=== PATIENT | female | born 1990 | race American Indian/Alaskan Native ===

== ENCOUNTER 2021-08-09 08:42 | Emergency (ER) | payer MEDICAID ==
--- NOTE | 2021-08-09 09:48 | XRay Report ---
CHEST 2 VIEWS INDICATION / CLINICAL INFORMATION: Chest Pain. COMPARISON: None available. FINDINGS: SUPPORT DEVICES: None. HEART / MEDIASTINUM: No significant abnormality. LUNGS / PLEURA: No significant pulmonary or pleural abnormality. No pneumothorax. ADDITIONAL FINDINGS: No significant additional findings. IMPRESSION: 1. No acute findings. Signer Name: Avinash Coates MD Signed: 08/09/2021 9:43 AM Workstation Name: [id number]
[2021-08-09] MEDS ORDERED: ONDANSETRON 4 MG ODT TAB PO ONE (10:15)
[2021-08-09 10:38] LABS: Basophils % (Auto) 0.3 % (0.0-1.8); Eosinophils # (Auto) 0.1 K/mm3 (0.0-0.4); Hematocrit 32.4 % (30.3-42.9); Hemoglobin 10.5 gm/dl (10.1-14.3); Lymphocytes # (Auto) 1.6 K/mm3 (1.2-5.4); Lymphocytes % (Auto) 19.2 % (13.4-35.0); Mean Corpuscular HGB Conc 32 % (30-34); Mean Corpuscular Volume 76 fl (79-97); Monocytes # (Auto) 0.7 K/mm3 (0.0-0.8); Monocytes % (Auto) 8.4 % (0.0-7.3); Platelet Count 362 K/mm3 (140-440); Red Blood Count 4.29 M/mm3 (3.65-5.03); Red Cell Distribution Width 19.1 % (13.2-15.2)
--- NOTE | 2021-08-09 10:52 | Emergency Department Report ---
ED Abdominal Pain HPI - General Chief Complaint: Chest Pain Stated Complaint: CHEST/ABD PAIN Time Seen by Provider: 08/09/21 10:14 Source: patient Mode of arrival: Wheelchair Limitations: No Limitations - History of Present Illness Initial Comments: 31-year-old black female with no past medical history presents to the emergency department for evaluation of left flank, abdominal, and chest pain. She states that while driving to work around 720 this morning, she had sudden onset of left flank pain that radiated to her left abdomen and left back then eventually up to her chest. She states that pain was associated with dizziness, nausea, vomiting, and shortness of breath. She states pain at its worse was 5 out of 10. She denies fever and dysuria, and she states that she has never had pain like this before. MD Complaint: abdominal pain, flank pain -: Sudden, hour(s) Location: L flank Radiation: LLQ, chest Migration to: no migration Severity: moderate Severity scale (0 -10): 5 Quality: cramping, aching Consistency: constant Associated Symptoms: nausea, vomiting. denies: diarrhea, fever, chills, dysuria, hematemesis, hematochezia, melena, hematuria, anorexia, syncope - Related Data Previous Rx's Medication Instructions Recorded Last Taken Type Ketorolac [Toradol] 10 mg PO Q6H PRN #12 tab 08/09/21 Unknown Rx Ondansetron [Zofran Odt] 4 mg PO Q8HR PRN #12 tab.rapdis 08/09/21 Unknown Rx cephALEXin [Keflex] 500 mg PO Q12HR #14 cap 08/09/21 Unknown Rx Allergies Allergy/AdvReac Type Severity Reaction Status Date / Time No Known Allergies Allergy Unverified 08/09/21 08:54 ED Review of Systems ROS: Stated complaint: CHEST/ABD PAIN Other details as noted in HPI Comment: All other systems reviewed and negative Constitutional: denies: chills, fever Respiratory: denies: shortness of breath, SOB with exertion, SOB at rest Cardiovascular: chest pain. denies: palpitations, dyspnea on exertion, orthopnea, edema, syncope, paroxysmal nocturnal dyspnea Gastrointestinal: abdominal pain. denies: nausea, vomiting, diarrhea, hematemesis, melena, hematochezia Genitourinary: denies: urgency, dysuria, frequency, hematuria, discharge Musculoskeletal: back pain Neurological: denies: headache, weakness, numbness, paresthesias, confusion, abnormal gait, vertigo ED Past Medical Hx - Medications Home Medications: Home Medications Medication Instructions Recorded Confirmed Last Taken Type Ketorolac [Toradol] 10 mg PO Q6H PRN #12 tab 08/09/21 Unknown Rx Ondansetron [Zofran Odt] 4 mg PO Q8HR PRN #12 tab.rapdis 08/09/21 Unknown Rx cephALEXin [Keflex] 500 mg PO Q12HR #14 cap 08/09/21 Unknown Rx ED Physical Exam - General Limitations: No Limitations General appearance: alert, in no apparent distress - Head Head exam: Present: atraumatic, normocephalic - Eye Eye exam: Present: normal appearance. Absent: conjunctival injection - Neck Neck exam: Present: normal inspection, full ROM. Absent: lymphadenopathy - Respiratory Respiratory exam: Present: normal lung sounds bilaterally. Absent: respiratory distress, wheezes, rales, rhonchi, stridor, chest wall tenderness - Cardiovascular Cardiovascular Exam: Present: regular rate, normal heart sounds - GI/Abdominal GI/Abdominal exam: Present: soft, tenderness (L flank and LLQ), normal bowel sounds. Absent: distended, guarding, rebound, rigid - Extremities Exam Extremities exam: Present: normal inspection, normal capillary refill. Absent: pedal edema, joint swelling, calf tenderness - Back Exam Back exam: Present: normal inspection, CVA tenderness (L). Absent: CVA tenderness (R), vertebral tenderness - Neurological Exam Neurological exam: Present: alert, oriented X3, normal gait, reflexes normal. Absent: motor sensory deficit - Psychiatric Psychiatric exam: Present: normal affect, normal mood - Skin Skin exam: Present: warm, dry, intact, normal color ED Course Vital Signs 08/09/21 08/09/21 08:55 14:39 Temperature 98.3 F Pulse Rate 65 78 Respiratory 18 18 Rate Blood Pressure 133/83 135/65 [Right] O2 Sat by Pulse 10 L 98 Oximetry ED Medical Decision Making - Lab Data Result diagrams: 08/09/21 09:58 08/09/21 09:58 - EKG Data Interpretation: no acute changes, normal EKG - Radiology Data Radiology results: report reviewed, image reviewed Chest xray: FINDINGS: SUPPORT DEVICES: None. HEART / MEDIASTINUM: No significant abnormality. LUNGS / PLEURA: No significant pulmonary or pleural abnormality. No pneumothorax. ADDITIONAL FINDINGS: No significant additional findings. IMPRESSION: 1. No acute findings. CT abdomen and pelvis without contast: FINDINGS: LOWER CHEST: On the most superior images, an approximate 4 cm well circumscribed soft tissue density rounded masslike lesion is identified in the lower mediastinum just to the right of midline. Internal density measures 43 Hounsfield units. This rounded density abuts the right mainstem bronchus, distal esophagus and lower thoracic spine. No internal complexity. Heart size is normal. The visualized lung bases are clear. LIVER: No significant abnormality. GALLBLADDER: No significant abnormality. BILE DUCTS: No significant abnormality. PANCREAS: No significant abnormality. SPLEEN: No significant abnormality. ADRENALS: No significant abnormality. RIGHT KIDNEY and URETER: There are approximately 5 calyceal stones in the mid to inferior right kidney measuring up to 3 mm. No ureteral stones or hydronephrosis. No focal right renal lesion. LEFT KIDNEY and URETER: 2 or 3 punctate calyceal stones are identified in the mid and superior left kidney. No convincing ureteral stones. No hydronephrosis. No focal left renal lesion. STOMACH and SMALL BOWEL: No significant abnormality. COLON: No significant abnormality. APPENDIX: Not confidently identified. PERITONEUM: No free fluid. No free air. No fluid collection. LYMPH NODES: No significant adenopathy. AORTA and ARTERIES: No significant abnormality. IVC and VEINS: No significant abnormality. URINARY BLADDER: The bladder is mostly empty and poorly evaluated. No obvious wall abnormality. There is a 3 mm calcification in the vicinity of the distal left ureter or just within the bladder. I suspect this may represent a recently passed stone. REPRODUCTIVE ORGANS: No significant abnormality. ADDITIONAL FINDINGS: None. SKELETAL SYSTEM: No significant abnormality. IMPRESSION: Bilateral nonobstructing nephrolithiasis as described. Question a 3 mm stone in the bladder as described above. This may represent a recently passed stone. Please correlate with the patient's clinical presentation. No acute inflammatory process is appreciated. A 4 cm rounded soft tissue density masslike lesion is identified in the lower mediastinum as described above. This is incompletely imaged but overall has a benign appearance. Considerations include an enlarged lymph node, neurogenic lesion, bronchogenic cyst, GI duplication cyst, pericardial cyst, although other etiologies are not excluded. Although I suspect a benign lesion, further evaluation with CT or MRI with and without contrast of the chest is recommended for further evaluation. CT chest with contrast: FINDINGS: HEART: No significant abnormality. CORONARY ARTERY CALCIFICATION: None. THORACIC AORTA: No significant abnormality. MEDIASTINUM / HONG: Within the posterior mediastinum, within the subcarinal space there is a soft tissue mass measuring approximately 4.2 x 4.7 x 5.7 cm. Based on the previous CT abdomen and pelvis this mass demonstrates slight enhancement. PLEURA: No pleural effusion. No pneumothorax. LUNGS: No acute air space or interstitial disease. ADDITIONAL FINDINGS: None. UPPER ABDOMEN: No significant abnormality. SKELETAL SYSTEM: No significant abnormality. IMPRESSION: 1. Redemonstrated soft tissue mass within the posterior mediastinum, in the subcarinal space. This nonspecific and may represent an enlarged lymph node versus neurogenic tumor. Recommend PET/CT and/or tissue sampling for further evaluation. - Medical Decision Making 31-year-old black female with no past medical history presents to the emergency department for evaluation of left flank, abdominal, and chest pain. She states that while driving to work around 720 this morning, she had sudden onset of left flank pain that radiated to her left abdomen and left back then eventually up to her chest. She states that pain was associated with dizziness, nausea, vomiting, and shortness of breath. She states pain at its worse was 5 out of 10. She denies fever and dysuria, and she states that she has never had pain like this before CT abdomen and chest positive for kidney stones of which at least one has already passed and also noted indeterminate mass to mediastinum. CT chest with contrast was order per request of radiology to better evaluate mass and showed a soft tissue mass requiring further outpatient workup. CXR, EKG, and troponin were within normal limits. Patient states that she felt better. Urine positive for UTI. She will be discharged home with Keflex for UTI and toradol, zofran for treatment of kidney stones. She is advised to take medications as prescribed and follow up with pcp for further evaluation and management of mass and kidney stones. She verbalized understanding of and agreement with plan of care. Critical care attestation.: If time is entered above; I have spent that time in minutes in the direct care of this critically ill patient, excluding procedure time. ED Disposition Clinical Impression: Kidney stones, Mass of mediastinum Disposition: HOME / SELF CARE / HOMELESS Is pt being admited?: No Does the pt Need Aspirin: No Condition: Stable Instructions: Low-Purine Eating Plan, Kidney Stones, [id number] Additional Instructions: Take medications as prescribed. Follow-up with primary care provider for further evaluation and management. Prescriptions: cephALEXin [Keflex] 500 mg PO Q12HR #14 cap Ketorolac [Toradol] 10 mg PO Q6H PRN #12 tab PRN Reason: Pain Ondansetron [Zofran Odt] 4 mg PO Q8HR PRN #12 tab.rapdis PRN Reason: Nausea And Vomiting Referrals: HEMA CHÁVEZ MD [Primary Care Provider] - 3-5 Days Forms: Work/School Release Form(ED) Time of Disposition: 14:08
[2021-08-09 10:53] LABS: HCG Qualitative,Urine Negative (Negative)
[2021-08-09 10:55] LABS: Alanine Aminotransferase 10 units/L (7-56); Albumin 3.6 g/dL (3.9-5); Blood Urea Nitrogen 13 mg/dL (7-17); Hemolysis Index 14
[2021-08-09 11:03] LABS: BUN/Creatinine Ratio 22
[2021-08-09 11:18] LABS: Bilirubin,Urine NEG (Negative); Blood,Urine LG (Negative); Color,Urine Yellow (Yellow); Mucus,Urine 2+ /HPF; Urobilinogen,Urine < 2.0 mg/dL (<2.0)
[2021-08-09 11:31] LABS: RBC,Urine > 182.0 /HPF (0.0-6.0)
--- NOTE | 2021-08-09 11:57 | Cat Scan Report ---
CT ABDOMEN AND PELVIS WITHOUT CONTRAST INDICATION / CLINICAL INFORMATION: flank pain,NAUSEA. TECHNIQUE: Axial CT images were obtained through the abdomen and pelvis without IV contrast. Sagittal and mccormack l reformatted images. All CT scans at this location are performed using CT dose reduction for ALARA b y means of automated exposure control. COMPARISON: None available. FINDINGS: LOWER CHEST: On the most superior images, an approximate 4 cm well circumscribed soft tissue density rounded masslike lesion is identified in the lower mediastinum just to the right of midline. Internal density measures 43 Hounsfield units. This rounded density abuts the right mainstem bronchus, distal esophagus and lower thoracic spine. No internal complexity. Heart size is normal. The visualized domenica g bases are clear. LIVER: No significant abnormality. GALLBLADDER: No significant abnormality. BILE DUCTS: No significant abnormality. PANCREAS: No significant abnormality. SPLEEN: No significant abnormality. ADRENALS: No significant abnormality. RIGHT KIDNEY and URETER: There are approximately 5 calyceal stones in the mid to inferior right kidne y measuring up to 3 mm. No ureteral stones or hydronephrosis. No focal right renal lesion. LEFT KIDNEY and URETER: 2 or 3 punctate calyceal stones are identified in the mid and superior left k idney. No convincing ureteral stones. No hydronephrosis. No focal left renal lesion. STOMACH and SMALL BOWEL: No significant abnormality. COLON: No significant abnormality. APPENDIX: Not confidently identified. PERITONEUM: No free fluid. No free air. No fluid collection. LYMPH NODES: No significant adenopathy. AORTA and ARTERIES: No significant abnormality. IVC and VEINS: No significant abnormality. URINARY BLADDER: The bladder is mostly empty and poorly evaluated. No obvious wall abnormality. There is a 3 mm calcification in the vicinity of the distal left ureter or just within the bladder. I susp ect this may represent a recently passed stone. REPRODUCTIVE ORGANS: No significant abnormality. ADDITIONAL FINDINGS: None. SKELETAL SYSTEM: No significant abnormality. IMPRESSION: Bilateral nonobstructing nephrolithiasis as described. Question a 3 mm stone in the bladder as descri bed above. This may represent a recently passed stone. Please correlate with the patient's clinical p resentation. No acute inflammatory process is appreciated. A 4 cm rounded soft tissue density masslike lesion is identified in the lower mediastinum as describe d above. This is incompletely imaged but overall has a benign appearance. Considerations include an e nlarged lymph node, neurogenic lesion, bronchogenic cyst, GI duplication cyst, pericardial cyst, alth ough other etiologies are not excluded. Although I suspect a benign lesion, further evaluation with C T or MRI with and without contrast of the chest is recommended for further evaluation. Signer Name: Perez Sorensen Jr, MD Signed: 08/09/2021 11:52 AM Workstation Name: [id number]
[2021-08-09] MEDS ORDERED: SODIUM CHLORIDE 0.9% 1000 ML 1,000 ML IV ONE (13:17)
--- NOTE | 2021-08-09 13:47 | Cat Scan Report ---
CT CHEST WITH CONTRAST INDICATION / CLINICAL INFORMATION: mass. TECHNIQUE: Axial CT images were obtained through the chest after the 5 cc of Omnipaque [address] All [address] scans at this location are performed using CT dose reduction for ALARA by means of automate d exposure control. COMPARISON: CT of the abdomen and pelvis from earlier in the day FINDINGS: HEART: No significant abnormality. CORONARY ARTERY CALCIFICATION: None. THORACIC AORTA: No significant abnormality. MEDIASTINUM / HONG: Within the posterior mediastinum, within the subcarinal space there is a soft tis karlos mass measuring approximately 4.2 x 4.7 x 5.7 cm. Based on the previous CT abdomen and pelvis this mass demonstrates slight enhancement. PLEURA: No pleural effusion. No pneumothorax. LUNGS: No acute air space or interstitial disease. ADDITIONAL FINDINGS: None. UPPER ABDOMEN: No significant abnormality. SKELETAL SYSTEM: No significant abnormality. IMPRESSION: 1. Redemonstrated soft tissue mass within the posterior mediastinum, in the subcarinal space. This no nspecific and may represent an enlarged lymph node versus neurogenic tumor. Recommend PET/CT and/or t issue sampling for further evaluation. Signer Name: Jimi Lopez DO Signed: 08/09/2021 1:42 PM Workstation Name: [id number]
[2021-08-09 14:41] VITALS: BP 135/65
--- NOTE | 2021-08-12 19:46 | Electrocardiograph Report ---
[facility] Test Date: 2021-08-09 Test Time: 09:16:06 Pat Name: CHEMO SILVA Department: Room: Gender: F [employer] Laboratory Asst: TED : 1990 Requested By: SANDRA SIBLEY Order Number: [id number] Reading MD: Sudhakar Yousif Measurements Intervals [place] Rate: 56 P: 60 RI: 146 QRS: 22 QRSD: 94 T: 13 QT: 402 QTc: 389 Interpretive Statements Sinus rhythm Nonspecific T abnormalities, anterior leads No previous ECG available for comparison Electronically Signed On 08-12-2021 19:45:20 EDT by Sudhakar Yousif
== END 2021-08-09 14:41 | disposition home or self-care (01) ==
LOC: ED 08:42
DX: N20.0 Calculus of kidney (principal); J98.59 Other diseases of mediastinum, not elsewhere classified
CPT/HCPCS: 36415; 71046; 71260; 74176; 80053; 81001; 81025; 84484; 85025; 87086; 93005; 99284; Q9967; J3490; Q0162; J7030